=== PATIENT | female | born 2005 | race Caucasian/White ===

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

== ENCOUNTER 2024-07-18 20:55 | Emergency (ER) | payer MEDICAID ==
[~2024-07-18] VITALS: Ht 157.5 cm; Wt 104.3 kg
[~2024-07-18 20:55] MED LIST: IBUP-2213 PO
[2024-07-18 21:06] VITALS: BP 135/78; PULSE 100; RESP 18; TEMP 98.6; O2SAT 97
[2024-07-18 22:00] LABS: FLU A ANTIGEN negative (NEGATIVE); FLU B ANTIGEN NEGATIVE (NEGATIVE)
[2024-07-18] MEDS ORDERED: BENZ200C4 PO (22:16)
[2024-07-18] MEDS ORDERED: MUC600 PO (22:16)
== END 2024-07-18 22:21 | disposition home or self-care (01) ==
LOC: MED 20:55
DX: B34.9 Viral infection, unspecified (principal); Z20.822 Contact with and (suspected) exposure to COVID-19; Z79.899 Other long term (current) drug therapy
CPT/HCPCS: 99283